=== PATIENT | female | born 1985 | race African-American/Black ===

== ENCOUNTER 2017-09-16 08:59 | Emergency (ER) | payer OTHER ==
[2017-09-16 09:53] LABS: Bilirubin Negative (Negative); Blood, Urine Moderate (Negative); Glucose, Urine (Dipstick) Negative (Negative); Ketone, Urine Negative (Negative); Nitrite Negative (Negative); Protein, Urine (Dipstick) Negative (Neg-Trace); Urobilinogen 0.2 mg/dL (0.2-1.0)
[2017-09-16 09:54] LABS: #Basophils 0.1 thou/uL (0.0-0.2); #Eosinphils 0.3 thou/uL (0.0-0.7); #Monocytes 0.8 thou/uL (0.11-0.59); #Neutrophils 4.7 thou/uL (1.40-6.50); %Basophils 1.2 % (0.0-1.0); %Eosinophils 3.4 % (0.0-10.0); %Lymphocytes 33.8 % (21.0-51.0); Hematocrit 40.9 % (36.0-47.0); Mean Platelet Volume 5.9 fL (7.4-10.4); Red Blood Cell (RBC) Count 4.45 mill/uL (4.20-5.40); White Blood Cell (WBC) Count 8.9 thou/uL (4.8-10.8)
[2017-09-16 09:57] LABS: Bacteria/HPF Rare-Few HPF (None Seen); Hyaline Casts/LPF 0-3 HYALINE CAST LPF (0-3 Hyaline)
[2017-09-16 10:16] LABS: ALT (SGPT) 26 U/L (8-55); AST (SGOT) 31 U/L (5-34); Alkaline Phosphatase 50 U/L (40-150); Anion Gap 10 mmol/L (10-20); BUN (Urea Nitrogen) 12 mg/dL (7.0-18.7); Bilirubin, Total 0.5 mg/dL (0.2-1.2); Calc. Creatinine Clearance 0 mL/min (70-130); Carbon Dioxide 27 mmol/L (22-29); Chloride 104 mmol/L (98-107); Estimated GFR-MDRD Greater than 90; Globulin 3.2 g/dL (2.4-3.5); Lipase 25 U/L (8-78); Protein, Total 7.1 g/dL (6.0-8.3)
[2017-09-16] MEDS ORDERED: Ibuprofen 800 MG TAB ONE (10:32)
[2017-09-16] MEDS ORDERED: Ibuprofen 200 MG TAB ONE (10:34)
--- NOTE | 2017-09-16 11:31 | RAD ---
THREE VIEWS OF THE LUMBAR SPINE: DATE: 09/16/17. COMPARISON: None. HISTORY: Pain. FINDINGS: Secondary to body habitus, detailed assessment of the lumbar vertebral bodies is limited on frontal i maging. The lateral exam demonstrates normal lumbar spine vertebral body height and alignment. No e vidence for a compression fracture noted on the lateral exam. IMPRESSION: Grossly unremarkable lumbar spine series. POS: [facility]
== END 2017-09-16 11:31 | disposition home or self-care (01) ==
LOC: ERS 08:59
DX: N30.01 Acute cystitis with hematuria (principal); F17.210 Nicotine dependence, cigarettes, uncomplicated
CPT/HCPCS: 36415; 72100; 80053; 81003; 81015; 83690; 84703; 85025

== ENCOUNTER 2017-09-22 07:06 | Emergency (ER) | payer OTHER, SELFPAY ==
--- NOTE | 2017-09-22 08:35 | RAD ---
CHEST 1 VIEW: HISTORY: Cough. Chest pain. COMPARISON: 07/25/16. FINDINGS: Cardiac silhouette is magnified by projection. Pulmonary vasculature is unremarkable. Mediastinum i s midline. There is no lobar consolidation or evidence of pneumothorax. IMPRESSION: No active cardiopulmonary abnormalities are demonstrated. POS: [facility]
== END 2017-09-22 07:50 | disposition home or self-care (01) ==
LOC: ERS 07:06
DX: J20.9 Acute bronchitis, unspecified (principal); F17.210 Nicotine dependence, cigarettes, uncomplicated
CPT/HCPCS: 71010

== ENCOUNTER 2018-07-16 18:46 | Emergency (ER) | payer OTHER, SELFPAY ==
[2018-07-16] MEDS ORDERED: Ibuprofen 200 MG TAB ONE (19:44)
== END 2018-07-16 20:01 | disposition home or self-care (01) ==
LOC: ERS 18:46
DX: B34.9 Viral infection, unspecified (principal); F17.210 Nicotine dependence, cigarettes, uncomplicated
CPT/HCPCS: 99283

== ENCOUNTER 2018-09-22 08:59 | Emergency (ER) | payer SELFPAY ==
[2018-09-22] MEDS ORDERED: Metoclopramide HCl 10 MG/2 ML VIAL ONE (09:43)
[2018-09-22 10:01] LABS: Bilirubin Negative (Negative); Blood, Urine Trace (Negative); Clarity CLEAR (Clear); Glucose, Urine (Dipstick) Negative (Negative); Leukocyte Negative (Negative); Nitrite Negative (Negative); Protein, Urine (Dipstick) Negative (Neg-Trace); Specific Gravity, Urine 1.008 (1.002-1.036); Urobilinogen 0.2 mg/dL (0.2-1.0)
[2018-09-22 10:03] LABS: Pregnancy Test - Urine (BHCG) Negative (Negative); Pregu Control Background? CLEAR/WHITE (CLR/WHITE); Pregu Control Bar Appear? YES (CONTROL BAR); Specific Gravity 1.008 (1.002-1.036)
[2018-09-22 10:04] LABS: Bacteria/HPF None Seen HPF (None Seen); Hyaline Casts/LPF 0-3 HYALINE CAST LPF (0-3 Hyaline); Pathc Cast-AUWi Flag 0.14 (0-2.49); RBC/HPF 0-3 HPF (0-3); Squamous Epithelial None Seen HPF (0-3); WBC/HPF 0-3 HPF (0-3)
--- NOTE | 2018-09-22 10:10 | CT ---
CT BRAIN NONCONTRAST: Date: 09/22/18 HISTORY: 33-year-old female with headache and near syncope. FINDINGS: There is no midline shift or any other mass effect. There is no evidence of acute intracranial hemor rhage, large cortical infarct, obstructive hydrocephalus, or extraaxial fluid collection. The calvar ium is intact. IMPRESSION: No acute intracranial findings. jn [] POS: [facility]
[2018-09-22 10:16] LABS: #Basophils 0.1 thou/uL (0.0-0.2); #Eosinphils 0.4 thou/uL (0.0-0.7); #Lymphocytes 3.1 thou/uL (1.20-3.40); #Monocytes 0.8 thou/uL (0.11-0.59); #Neutrophils 4.3 thou/uL (1.40-6.50); %Basophils 0.9 % (0.0-1.0); %Eosinophils 4.8 % (0.0-10.0); %Lymphocytes 35.7 % (21.0-51.0); %Monocytes 9.3 % (0.0-10.0); %Neutrophils 49.4 % (42.0-75.0); Hemoglobin 13.6 g/dL (12.0-16.0); Mean Corpuscular HGB CONC 32.9 g/dL (32.0-36.0); Mean Corpuscular Hemoglobin 29.2 pg (27.0-31.0); Mean Corpuscular Volume 88.8 fL (78.0-98.0); Mean Platelet Volume 6.3 fL (7.4-10.4); Platelet Count 478 thou/uL (130-400); Red Blood Cell (RBC) Count 4.65 mill/uL (4.20-5.40); White Blood Cell (WBC) Count 8.6 thou/uL (4.8-10.8)
[2018-09-22] MEDS ORDERED: Acetaminophen 500 MG TAB ONE (10:27)
[2018-09-22 10:36] LABS: ALT (SGPT) 11 U/L (8-55); AST (SGOT) 16 U/L (5-34); Albumin 4.3 g/dL (3.5-5.0); Alkaline Phosphatase 53 U/L (40-150); Anion Gap 12 mmol/L (10-20); BUN (Urea Nitrogen) 15 mg/dL (7.0-18.7); Bilirubin, Total 0.4 mg/dL (0.2-1.2); Calc. Creatinine Clearance 0 mL/min (70-130); Calcium 9.2 mg/dL (7.8-10.44); Carbon Dioxide 19 mmol/L (22-29); Chloride 109 mmol/L (98-107); Estimated GFR-MDRD Greater than 90; Globulin 3.2 g/dL (2.4-3.5); Glucose 87 mg/dL (70-105); Potassium 4.2 mmol/L (3.5-5.1); Protein, Total 7.5 g/dL (6.0-8.3); Sodium 136 mmol/L (136-145)
[2018-09-22 10:41] LABS: Troponin I Less than 0.010 ng/mL (< 0.028)
== END 2018-09-22 12:03 | disposition home or self-care (01) ==
LOC: ERS 08:59
DX: R51 Headache (principal); R55 Syncope and collapse; F17.210 Nicotine dependence, cigarettes, uncomplicated
CPT/HCPCS: 70450; 80053; 81003; 81015; 81025; 84484; 85025; 93005; 96361; 96374; J2765

== ENCOUNTER 2018-10-11 09:14 | Emergency (ER) | payer SELFPAY ==
[2018-10-11] MEDS ORDERED: Lidocaine Viscous Sol 2% 15 ml UD Cup ONE (10:51)
[2018-10-11] MEDS ORDERED: Bupivacaine 0.25% 10 ML VIAL ONE (11:28)
[2018-10-11] MEDS ORDERED: Lidocaine 1% PF 5 ML VIAL ONE (11:28)
[2018-10-11] MEDS ORDERED: Ibuprofen 200 MG TAB ONE (12:01)
== END 2018-10-11 12:08 | disposition home or self-care (01) ==
LOC: ERS 09:14
DX: K04.7 Periapical abscess without sinus (principal); F17.210 Nicotine dependence, cigarettes, uncomplicated
CPT/HCPCS: 41800; J2001; S0020

== ENCOUNTER 2019-04-08 17:00 | Emergency (ER) | payer SELFPAY ==
[2019-04-08 17:42] LABS: #Basophils 0.1 thou/uL (0.0-0.2); #Eosinphils 0.3 thou/uL (0.0-0.7); #Lymphocytes 3.3 thou/uL (1.20-3.40); #Monocytes 0.7 thou/uL (0.11-0.59); #Neutrophils 2.9 thou/uL (1.40-6.50); %Basophils 1.2 % (0.0-1.0); %Eosinophils 4.3 % (0.0-10.0); %Lymphocytes 45.4 % (21.0-51.0); %Monocytes 8.9 % (0.0-10.0); %Neutrophils 40.2 % (42.0-75.0); Hemoglobin 12.6 g/dL (12.0-16.0); Mean Corpuscular HGB CONC 32.2 g/dL (32.0-36.0); Mean Corpuscular Volume 90.3 fL (78.0-98.0); Mean Platelet Volume 6.3 fL (7.4-10.4); Platelet Count 484 thou/uL (130-400); RBC Distribution Width 13.7 % (11.5-14.5); Red Blood Cell (RBC) Count 4.35 mill/uL (4.20-5.40); White Blood Cell (WBC) Count 7.3 thou/uL (4.8-10.8)
[2019-04-08 17:48] LABS: BHCG - Serum Negative (NEGATIVE); Pregs Control Background? CLEAR/WHITE (CLR/WHITE); Pregs Control Bar Appear? YES (CONTROL BAR)
[2019-04-08 18:04] LABS: ALT (SGPT) 14 U/L (8-55); AST (SGOT) 14 U/L (5-34); Albumin 4.2 g/dL (3.5-5.0); Alkaline Phosphatase 65 U/L (40-150); Anion Gap 10 mmol/L (10-20); BUN (Urea Nitrogen) 10 mg/dL (7.0-18.7); Bilirubin, Total 0.2 mg/dL (0.2-1.2); Calc. Creatinine Clearance 0 mL/min (70-130); Calcium 9.3 mg/dL (7.8-10.44); Carbon Dioxide 27 mmol/L (22-29); Chloride 106 mmol/L (98-107); Estimated GFR-MDRD Greater than 90; Globulin 2.9 g/dL (2.4-3.5); Glucose 92 mg/dL (70-105); Potassium 3.8 mmol/L (3.5-5.1); Protein, Total 7.1 g/dL (6.0-8.3); Sodium 139 mmol/L (136-145)
[2019-04-08] MEDS ORDERED: Ketorolac Tromethamine 60 MG/2 ML VIAL ONE (18:04)
[2019-04-08 18:29] LABS: Bilirubin Negative (Negative); Blood, Urine Negative (Negative); Clarity CLOUDY (Clear); Glucose, Urine (Dipstick) Negative (Negative); Leukocyte Small (Negative); Nitrite Negative (Negative); Protein, Urine (Dipstick) Negative (Neg-Trace); Specific Gravity, Urine 1.015 (1.002-1.036); pH, Urine 7.5 (5.0-9.0)
[2019-04-08 18:31] LABS: Bacteria/HPF None Seen HPF (None Seen); Hyaline Casts/LPF 4-6 HYALINE CAST LPF (0-3 Hyaline); Pathc Cast-AUWi Flag 1.22 (0-2.49)
== END 2019-04-08 19:00 | disposition home or self-care (01) ==
LOC: ERS 17:00
DX: N39.0 Urinary tract infection, site not specified (principal); R10.9 Unspecified abdominal pain; F17.210 Nicotine dependence, cigarettes, uncomplicated
CPT/HCPCS: 36415; 80053; 81003; 81015; 84703; 85025; J1885

== ENCOUNTER 2019-09-12 09:52 | Emergency (ER) | payer SELFPAY ==
[2019-09-12] MEDS ORDERED: Ketorolac Tromethamine 60 MG/2 ML VIAL ONE (11:41)
== END 2019-09-12 12:59 | disposition home or self-care (01) ==
LOC: ERS 09:52
DX: M62.830 Muscle spasm of back (principal); F17.210 Nicotine dependence, cigarettes, uncomplicated; Z79.899 Other long term (current) drug therapy
CPT/HCPCS: 96372; 99283; J1885

== ENCOUNTER 2020-12-20 07:15 | Emergency (ER) | payer SELFPAY ==
[2020-12-20] MEDS ORDERED: Ketorolac Tromethamine 30 MG/ML VIAL ONE (07:52)
--- NOTE | 2020-12-20 08:03 | RAD ---
Exam: XR Tib Fib Lt Leg 2 View HISTORY: Left lower leg pain. COMPARISON: None FINDINGS: No acute fracture, dislocation, or other acute osseous abnormality is identified. IMPRESSION: No acute osseous abnormality is identified.
--- NOTE | 2020-12-20 08:41 | ULT ---
EXAM: Left lower extremity venous Doppler PROVIDED CLINICAL HISTORY: Pain FINDINGS: Grayscale and color Doppler sonography with spectral analysis was performed of the left common femora l, femoral, popliteal, posterior tibial, greater saphenous and profunda femoral veins. The evaluated venous structures demonstrate a normal sonographic appearance. IMPRESSION: No sonographic evidence for left lower extremity deep venous thrombosis.
== END 2020-12-20 10:14 | disposition home or self-care (01) ==
LOC: ERS 07:15
DX: M79.89 Other specified soft tissue disorders (principal); F17.210 Nicotine dependence, cigarettes, uncomplicated
CPT/HCPCS: 96372; J1885

== ENCOUNTER 2022-12-19 09:56 | Emergency (ER) | payer SELFPAY ==
[2022-12-19] MEDS ORDERED: Ipratropium/Albuterol 3 ML NEB ONE (10:22)
[2022-12-19 10:44] LABS: #Basophils 0.1 thou/uL (0.0-0.2); #Eosinphils 2.8 thou/uL (0.0-0.7); #Lymphocytes 4.6 thou/uL (1.20-3.40); #Monocytes 1.1 thou/uL (0.11-0.59); #Neutrophils 5.5 thou/uL (1.40-6.50); %Basophils 0.4 % (0.0-1.0); %Eosinophils 20.1 % (0.0-10.0); %Lymphocytes 32.3 % (21.0-51.0); %Monocytes 8.1 % (0.0-10.0); %Neutrophils 39.1 % (42.0-75.0); Hemoglobin 12.9 g/dL (12.0-16.0); Mean Corpuscular HGB CONC 32.2 g/dL (32.0-36.0); Mean Corpuscular Hemoglobin 29.1 pg (27.0-31.0); Mean Corpuscular Volume 90.5 fl (78.0-98.0); Mean Platelet Volume 6.6 fL (7.4-10.4); Platelet Count 536 10x3/uL (130-400); RBC Distribution Width 13.6 % (11.5-14.5); Red Blood Cell (RBC) Count 4.45 mill/uL (4.20-5.40); White Blood Cell (WBC) Count 14.1 10x3/uL (4.8-10.8)
[2022-12-19 10:59] LABS: ALT (SGPT) 18 U/L (8-55); AST (SGOT) 31 U/L (5-34); Albumin 4.3 g/dL (3.5-5.0); Alkaline Phosphatase 48 U/L (40-110); Anion Gap 13 mmol/L (10-20); BUN (Urea Nitrogen) 10 mg/dL (7.0-18.7); Bilirubin, Total 0.4 mg/dL (0.2-1.2); Calc. Creatinine Clearance 0 mL/min (70-130); Calcium 9.2 mg/dL (7.8-10.44); Carbon Dioxide 20 mmol/L (22-29); Chloride 107 mmol/L (98-107); Estimated GFR 99; Globulin 3.8 g/dL (2.4-3.5); Glucose 101 mg/dL (70-105); Protein, Total 8.1 g/dL (6.0-8.3); Sodium 136 mmol/L (136-145)
[2022-12-19] MEDS ORDERED: Dexamethasone 4 MG TAB ONE (13:05)
[2022-12-19] MEDS ORDERED: Dexamethasone 10 MG/ML VIAL ONE (13:07)
[2022-12-19] MEDS ORDERED: Ketorolac Tromethamine 30 MG/ML VIAL ONE (13:15)
[2022-12-19] MEDS ORDERED: Ketorolac Tromethamine 10 MG TAB PO SCH (13:15)
[2022-12-19] MEDS ORDERED: Albuterol 2.5 MG/0.5 ML NEB ONE (14:20)
== END 2022-12-19 15:37 | disposition home or self-care (01) ==
LOC: ERS 09:56
DX: J45.901 Unspecified asthma with (acute) exacerbation (principal); D72.829 Elevated white blood cell count, unspecified; F17.210 Nicotine dependence, cigarettes, uncomplicated
CPT/HCPCS: 36415; 71045; 80053; 83880; 84484; 85025; 93005; 94640; 94644; 96372; J1100; J1885; J7611; J7620; J8540

== ENCOUNTER 2023-07-25 16:43 | Emergency (ER) | payer SELFPAY | END 2023-07-25 18:07 | disposition home or self-care (01) | LOC: ERS 16:43 | DX: M62.838 Other muscle spasm (principal); F17.210 Nicotine dependence, cigarettes, uncomplicated | CPT/HCPCS: 99283 ==